=== PATIENT | male | born 1975 | race Caucasian/White ===

== ENCOUNTER → 2018-06-15 16:16 | Outpatient (CLI) | payer OTHER, SELFPAY ==
--- NOTE | 2018-06-15 | DI.RAD.S_ITS ---
PROCEDURE: XR LUMBAR SPINE 2-3V INDICATIONS: LUMBAR AND BACK PAIN TECHNIQUE: 3 views of the lumbar spine were acquired. COMPARISON: [facility], , -SPINE 2-3 VIEWS, 11/10/2016, 10:17. FINDINGS: Bones: 5 [id number] vertebrae are present. There is normal bony alignment. No vertebral body compression fractures. No suspicious bony lesions. Soft tissues: Overlying bowel gas pattern is normal. No suspicious soft tissue calcifications. 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 No subluxation is found, and no spinal or foraminal stenosis is seen. Biplane film a definite source of focal pain is not identified. Dictated by: Doug Castle M.D. on 06/15/2018 at 16:55 Approved by: Doug Castle M.D. on 06/15/2018 at 16:56
--- NOTE | 2018-06-15 | DI.RAD.S_ITS ---
PROCEDURE: XR CERVICAL SPINE 2V OR 3V INDICATIONS: LUMBAR AND NECK PAIN TECHNIQUE: A 4 view(s) of the cervical spine were acquired. COMPARISON: None. FINDINGS: Bones: No fractures or dislocations to the T1 level. The lateral masses of C1 appear intact on the odontoid view. No suspicious bony lesions. Soft tissues: No prevertebral soft tissue swelling. IMPRESSION: There is a mild degree C5-6 degenerative disc height reduction, and no sign of subluxation or spinal/foraminal stenosis. Dictated by: Doug Castle M.D. on 06/15/2018 at 16:54 Approved by: Doug Castle M.D. on 06/15/2018 at 16:55
== END ==
PROVIDERS: Family Provider Family Medicine; PCP Family Medicine; Visit Provider Family Medicine
DX: M54.12 Radiculopathy, cervical region (principal); M54.40 Lumbago with sciatica, unspecified side; G89.29 Other chronic pain
CPT/HCPCS: 72040; 72100